=== PATIENT | male | born 1990 | race Caucasian/White ===

== ENCOUNTER 2024-03-19 22:44 | Emergency (ER) | payer SELFPAY ==
[2024-03-19 22:53] VITALS: RESP 18
--- NOTE | 2024-03-19 23:30 | ED ---
Wound/Laceration HPI - General Chief Complaint: Wound/Laceration Stated Complaint: left hand injury Time Seen by Provider: 03/19/24 23:28 Source: patient, RN notes reviewed Mode of arrival: ambulatory Limitations: no limitations - History of Present Illness Initial Comments: 33-year-old male presented to the ER with a chief complaint of left middle fing er injury. Patient states he was attaching a trailer onto his truck hitch and accidentally got his left third digit stuck in between. He reports his finger is "hanging off". Tetanus status unknown. Denies any other injuries or complaints. - Related Data Previous Rx's Medication Instructions Recorded Cephalexin [Keflex] 500 mg PO Q6HR 10 Days #40 cap 03/20/24 Cephalexin [Keflex] 500 mg PO Q6HR 10 Days #40 cap 03/20/24 HYDROcodone/APAP 5-325MG [Crescent 1 tab PO Q6HR PRN 3 Days #12 tab 03/20/24 5-325] Allergies Allergy/AdvReac Type Severity Reaction Status Date / Time No Known Allergies Allergy Verified 03/19/24 22:53 Review of Systems ROS Statement: Those systems with pertinent positive or pertinent negative responses have been documented in the HPI. ROS Other: All systems not noted in ROS Statement are negative. Past Medical History Past Medical History: No Reported History History of Any Multi-Drug Resistant Organisms: None Reported Past Surgical History: No Surgical Hx Reported Past Psychological History: No Psychological Hx Reported Smoking Status: Current every day smoker Past Alcohol Use History: Daily Past Drug Use History: Marijuana General Exam Limitations: no limitations General appearance: alert, in no apparent distress Respiratory exam: Present: normal lung sounds bilaterally. Absent: respiratory distress, wheezes, rales, rhonchi, stridor Cardiovascular Exam: Present: regular rate, normal rhythm, normal heart sounds. Absent: systolic murmur, diastolic murmur, rubs, gallop, clicks Extremities exam: Present: other (Near amputation of left third distal finger. Active bleeding present. Sensation intact. 2+ left radial pulse.) Skin exam: Present: warm, dry, intact, normal color. Absent: rash Course Vital Signs 03/19/24 03/20/24 22:51 00:50 Temperature 98 F 98.2 F Pulse Rate 100 93 Respiratory 18 18 Rate Blood Pressure 160/100 156/95 O2 Sat by Pulse 96 96 Oximetry - Reevaluation(s) Reevaluation #1: 03/19/24 23:37 Case discussed with on-call orthopedic, Dr. Streeter, who advised on irrigation and approximation of skin edges. He advises IM Ancef and Keflex. He strongly advised for outpatient hand surgeon follow-up. Procedures - Laceration Laceration #1 Consent Obtained: verbal consent Indication: laceration Site: hand (near amputation of left third digit- open fracture) Size (cm): 4 Description: linear Anesthetic Used: lidocaine 1% Anesthesia Technique: nerve block Amount (mls): 10 Pre-repair: wound explored, irrigated extensively (iodine and sterlie water) Type of Sutures: nylon Size of Sutures: 4-0 Number of Sutures: 6 Technique: simple, interrupted Patient Tolerated Procedure: well Medical Decision Making - Medical Decision Making Was pt. sent in by a medical professional or institution (, PA, FOOD SANITARIAN, urgent care, hospital, or group home...) When possible be specific @ -No Did you speak to anyone other than the patient for history (EMS, parent, family, police, friend...)? What history was obtained from this source @ -No Did you review nursing and triage notes (agree or disagree)? Why? @ -I reviewed and agree with nursing and triage notes Were old charts reviewed (outside hosp., previous admission, EMS record, old EKG, old radiological studies, urgent care reports/EKG's, group home records)? Report findings @ -No old charts were reviewed Differential Diagnosis (chest pain, altered mental status, abdominal pain women, abdominal pain men, vaginal bleeding, weakness, fever, dyspnea, syncope, headache, dizziness, GI bleed, back pain, seizure, CVA, palpatations, mental health, musculoskeletal)? @ -Differential Musculoskeletal: Muscular strain, contusion, ligament sprain, fracture, arthritis, septic arthritis, bursitis, cellulitis, muscle spasm, nerve compression, DVT, arterial occlusion, herpes zoster, electrolyte abnormality, tumor.... This is not meant to be in all inclusive list EKG interpreted by me (3pts min.). @ -None X-rays interpreted by me (1pt min.). @ -Left third digit x-ray interpreted by me remarkable for a comminuted fracture of the third digit distal tuft with displacement of [address] interpreted by me (1pt min.). @ -None done U/S interpreted by me (1pt. min.). @ -None done What testing was considered but not performed or refused? (CT, X-rays, U/S, labs)? Why? @ -None What meds were considered but not given or refused? Why? @ -None Did you discuss the management of the patient with other professionals (professionals i.e. DrTereso, PA, FOOD SANITARIAN, lab, RT, psych nurse, clinical social work therapist, summons server, teacher, property portfolio officer, rn case manager)? Give summary @ -Yes case discussed with on-call orthopedic, Dr. Streeter, who advised thorough irrigation, antibiotics, approximation and outpatient follow-up with hand surgeon. Was smoking cessation discussed for >3mins.? @ -No Was critical care preformed (if so, how long)? @ -No Were there social determinants of health that impacted care today? How? (Homelessness, low income, unemployed, alcoholism, drug addiction, transportation, low edu. Level, literacy, decrease access to med. care, fpc, rehab)? @ -No Was there de-escalation of care discussed even if they declined (Discuss DNR or withdrawal of care, Hospice)? DNR status @ -No What co-morbidities impacted this encounter? (DM, HTN, Smoking, COPD, CAD, Cancer, CVA, ARF, Chemo, Hep., AIDS, mental health diagnosis, sleep apnea, morbid obesity)? @ -None Was patient admitted / discharged? Hospital course, mention meds given and route, prescriptions, significant lab abnormalities, going to OR and other pertinent info. @ -Discharged. 33 year old male presenting to the ER with a chief complaint of left third digit injury. History and physical exam completed. Vitals stable. Patient in no signs of acute distress and nontoxic-appearing. Exam remarkable for near amputation of the left third distal digit. Mild active bleeding present. Sensation intact. Left upper extremity neurovascular intact. X-rays obtained remarkable for comminuted fracture of the third digit distal tuft which is displaced approximately 8 mm. Tetanus updated. Case discussed with on-call orthopedic, Dr. Streeter who advised on thorough irrigation, IM Ancef and p.o. Keflex at discharge, approximation of wound and outpatient follow-up with hand surgeon. Wound approximated, procedure note above. Patient received IM Ancef prior to discharge. Keflex prescribed. Orthopedic follow-up referrals given. Patient placed in a splint and nonadhesive dressing prior to discharge. Extremely strict return parameters discussed. Patient discharged in stable condition with follow-up to orthopedics. Patient verbally expressed understanding and agreement with care plan. Case discussed with ED attending, Dr. Carrillo. Undiagnosed new problem with uncertain prognosis? @ -No Drug Therapy requiring intensive monitoring for toxicity (Heparin, Nitro, Insulin, Cardizem)? @ -No Were any procedures done? @ -Yes Diagnosis/symptom? @ -Open fracture of left third digit distal phalanx Acute, or Chronic, or Acute on Chronic? @ -Acute Uncomplicated (without systemic symptoms) or Complicated (systemic symptoms)? @ -Complicated Side effects of treatment? @ -No Exacerbation, Progression, or Severe Exacerbation? @ -No Poses a threat to life or bodily function? How? (Chest pain, [place], [place], pneumonia, PE, COPD, DKA, ARF, appy, cholecystitis, CVA, Diverticulitis, Homicidal, Suicidal, threat to staff... and all critical care pts) @ -Possibly, open fracture can lead to osteomyelitis which can lead to sepsis. - Radiology Data Radiology results: report reviewed, image reviewed Disposition Clinical Impression: Open fracture of phalanx of finger Disposition: HOME SELF-CARE Condition: Stable Instructions (If sedation given, give patient instructions): Finger Fracture (ED) Additional Instructions: Complete full course of antibiotics. Follow-up with orthopedics on Saturday. Alternate Crescent and ibuprofen for pain control. Return to the ER for any new or worsening concerns. Prescriptions: Cephalexin [Keflex] 500 mg PO Q6HR 10 Days #40 cap Cephalexin [Keflex] 500 mg PO Q6HR 10 Days #40 cap HYDROcodone/APAP 5-325MG [Crescent 5-325] 1 tab PO Q6HR PRN 3 Days #12 tab PRN Reason: Pain Is patient prescribed a controlled substance at d/c from ED?: Yes When asked, does pt state using other controlled substances?: No If prescribed controlled substance>3 days was MAPS reviewed?: Prescribed <3 Days If opioid is for acute pain is fill amount 7 days or less?: Yes If Rx opioid, was Start Talking consent form obtained?: Yes Referrals: None,Stated [Primary Care Provider] - 1-2 days Anselmo Streeter MD [Medical Doctor] - 1-2 days Juan Collazo DO [REFERRING] - 1-2 days Time of Disposition: 00:24
[2024-03-19] MEDS: DIPH,PERTUS(ACELL)TETVAC-LF 0.5 ML VIAL IM ONE (23:31)
[2024-03-19] MEDS: LIDOCAINE 1% INJ 10MG/ML (20 ML MDV) SQ ONE (23:32)
[2024-03-19] MEDS: ceFAZolin 1,000 MG VIAL (IM USE) IM STA (23:32)
[2024-03-20 00:53] VITALS: BP 156/95; PULSE 93; TEMP 98.2
--- NOTE | 2024-03-20 03:11 | XR ---
EXAM: XR Left Fingers, 2 or More Views CLINICAL HISTORY: ITS.REASON XR Reason: injury TECHNIQUE: Frontal, lateral and oblique views of the fingers of the left hand. COMPARISON: No relevant prior studies available. FINDINGS: Bones/joints: Comminuted fracture of the third digit distal tuft, which is displaced by 8 mm. No dislocation. Soft tissues: Third digit distal soft-tissue laceration. No radiopaque foreign body. IMPRESSION: Comminuted fracture of the third digit distal tuft, which is displaced by 8 mm.
== END 2024-03-20 00:53 | disposition home or self-care (01) ==
LOC: EC 22:44
DX: S62.633B Displaced fracture of distal phalanx of left middle finger, initial encounter for open fracture (principal); F17.200 Nicotine dependence, unspecified, uncomplicated; Z23 Encounter for immunization; W23.0XXA Caught, crushed, jammed, or pinched between moving objects, initial encounter
CPT/HCPCS: 73140; 90715; 12002; 99282; 96372; 90471; J0690; J2001